=== PATIENT | female | born 1980 | race Caucasian/White ===

== ENCOUNTER 2017-07-28 11:37 | Day surgery (SDC) | payer MEDICARE ==
[~2017-07-28] VITALS: Ht 167.6 cm; Wt 77.3 kg
[~2017-07-28 11:37] MED LIST: AMBIEN5 MG PO; CATAPRES0.1 MG PO; GABAPENTIN100 MG PO; HYDROCODON-ACE1 EAC7 PO; HYDROCODONE-APA1 TAB PO; HYDROXYZINE HCL50 MG PO; LASIX40 MG PO; LOPRESSOR25 MG PO; NORVASC5 MG PO; PROTONIX40 MG PO; REGLAN10 MG PO; SODIUM BICARBO650 MG PO; ULTRAM50 MG PO; ZOCOR10 MG PO; ZOLOFT25 MG PO
[2017-07-28 13:07] LABS: BASOPHILS 0.3 % (0-2); EOSINOPHILS 4.1 % (0-7); HEMATOCRIT 34.2 % (36.0-48.0); HEMOGLOBIN 11.4 g/dL (12-16); IMMATURE GRANULOCYTES 0.3 % (0-5); LYMPHOCYTES 24.1 % (15-50); MCH 30.9 pg (26.0-34.0); MCHC 33.3 g/dL (31.0-37.0); MCV 92.7 fL (80.0-100.0); MEAN PLATELET VOLUME 9.1 fL (7.4-10.4); MONOCYTES 5.3 % (2-11); NEUTROPHILS 65.9 % (40-80); PLATELET COUNT 142 10x3/uL (130-400); RBC 3.69 10x6/uL (4.00-5.40); RDW 13.9 % (11.5-14.5); WBC 3.9 10x3/uL (4.8-10.8)
[2017-07-28 13:19] LABS: ANION GAP 14.3 mmol/L (8-16); CALCIUM 8.3 mg/dL (8.5-10.1); CARBON DIOXIDE 25.1 mmol/L (21.0-32.0); CREATININE - SERUM 3.6 mg/dL (0.6-1.3); POTASSIUM - SERUM 4.4 mmol/L (3.5-5.1)
[2017-07-28 14:29] VITALS: Ht 167.6 cm; Wt 77.3 kg
--- NOTE | 2017-07-28 17:54 | OP ---
PATIENT NAME: BLADIMIR SMITH MEDICAL RECORD: [id number] :78 LOCATION:D.OPS ADMISSION DATE: SURGEON: ROBERTO AKERS DO DATE OF OPERATION: 07/28/2017 PROCEDURE: EGD with biopsies. INDICATIONS FOR PROCEDURE: Nausea, vomiting, and epigastric abdominal pain. SCOPE: [facility] video gastroscope. MEDICATIONS: Propofol 200 mg IV per anesthesia. ESTIMATED BLOOD LOSS: Minimal. COMPLICATIONS: None. FINDINGS: Informed consent was given. The patient was made comfortable with the above medication. After reaching an adequate level of sedation by slow IV push, the patient was placed on her left side. The endoscope was then advanced under direct visualization through the mouth to the second portion of the duodenum. The esophagus was normal in its entirety other than some pseudomembranes in the distal esophagus consistent with Candidal esophagitis. At the GE junction, there was mild evidence of LA class A reflux-induced esophagitis. The endoscope was advanced beyond the GE junction into the stomach and retroflexed to view cardia and fundus, which appeared normal. Throughout the body of stomach, antral, and prepyloric regions, there was some granularity and erythema consistent with gastritis. Random biopsies were taken to submit for histology and to rule out H. pylori. The endoscope was advanced beyond the pylorus into the duodenum, where the entire exam and duodenum appeared normal. The scope was withdrawn from the patient. The patient tolerated the procedure well and there were no complications. IMPRESSION: 1. Candidal esophagitis of mild severity. 2. LA class A reflux-induced esophagitis. 3. Erythema and granularity of the stomach consistent with gastritis. Biopsies pending. PLANS AND RECOMMENDATIONS: 1. Discharge home when recovery parameters are met. 2. Followup biopsy specimen results. 3. Continue current diet. 4. Continue current medications. 5. Add omeprazole 40 mg daily times 30 days to her regimen. 6. Add fluconazole 100 mg daily times 10 days. 7. Gastric emptying scan and right upper quadrant ultrasound regarding epigastric abdominal pain and nausea, both worsened with eating. 8. Follow up in GI clinic as needed. 9. We will follow and make further recommendations once radiologic studies are performed. TRANSINT:[id number] Voice Confirmation ID: [id number] DOCUMENT ID: [id number] OPERATIVE REPORT [id number] BLADIMIR SMITH ROBERTO AKERS DO at 1754 CC: [id number] DICTATION DATE: 07/28/17 1547 MANAGER TRAVEL: 07/28/17 1623 [facility] 07/28/17 [id number] [place] [address]
== END 2017-07-28 16:52 | disposition home or self-care (01) ==
LOC: D.OPS 11:37
PROVIDERS: Anesthesiology
DX: B37.81 Candidal esophagitis (principal); K21.0 Gastro-esophageal reflux disease with esophagitis; K29.70 Gastritis, unspecified, without bleeding; Z01.812 Encounter for preprocedural laboratory examination

== ENCOUNTER → 2017-08-12 07:28 | Outpatient (CLI) | payer MEDICARE ==
[2017-07-28 14:29] VITALS: BMI 27.5
== END | disposition home or self-care (01) ==
LOC: D.US 08-05 08:30 → D.NM 08-05 11:30 → D.US 07:28
DX: R11.2 Nausea with vomiting, unspecified (principal); R10.13 Epigastric pain

== ENCOUNTER 2019-04-25 07:23 | Day surgery (SDC) | payer MEDICARE ==
[~2019-04-25] VITALS: Ht 167.6 cm; Wt 73.9 kg
[2019-04-25 07:52] LABS: ANION GAP 10.8 mmol/L (8-16); CARBON DIOXIDE 32.9 mmol/L (21.0-32.0); CREATININE - SERUM 5.3 mg/dL (0.6-1.3); POTASSIUM - SERUM 3.7 mmol/L (3.5-5.1)
[2019-04-25 07:57] LABS: BASOPHILS 0.6 % (0-2); EOSINOPHILS 10.4 % (0-7); HEMATOCRIT 32.1 % (36.0-48.0); HEMOGLOBIN 11.5 g/dL (12-16); IMMATURE GRANULOCYTES 0.2 % (0-5); LYMPHOCYTES 25.3 % (15-50); MCH 30.7 pg (26.0-34.0); MCHC 35.8 g/dL (31.0-37.0); MCV 85.6 fL (80.0-100.0); MEAN PLATELET VOLUME 9.4 fL (7.4-10.4); MONOCYTES 7.6 % (2-11); NEUTROPHILS 55.9 % (40-80); PLATELET COUNT 131 10x3/uL (130-400); RBC 3.75 10x6/uL (4.00-5.40); RDW 13.3 % (11.5-14.5); WBC 4.6 10x3/uL (4.8-10.8)
[2019-04-25 07:59] LABS: INR 1.02 (0.85-1.17); PROTIME 12.9 SECONDS (11.6-15.0)
[2019-04-25] MEDS ORDERED: RANITIDINE HCL150 M1 PO (09:18)
[2019-04-25] MEDS ORDERED: ATIVAN0.5 MG PO (09:18)
[2019-04-25] MEDS ORDERED: NOVOLOG100 UNIT/1 SC (09:19)
[2019-04-25 09:38] VITALS: Ht 167.6 cm; Wt 73.9 kg
--- NOTE | 2019-04-25 19:46 | NUR ---
183 - PT'S BROUGHT TO BEDSIDE WITH PT'S INSULIN PUMP. PT STATES THAT SHE USES NOVOLOG IN THE PUMP, SELF-ADMINISTERED I UNIT AT 183, PER .
--- NOTE | 2019-04-25 19:47 | NUR ---
1847 - PT'S METER SHOWS READING OF 315. 1 UNIT ADMINISTERED BY AT 1847
--- NOTE | 2019-04-25 19:48 | NUR ---
1902 - HOSPITAL GLUCOMETER READS 380 - PT SELF-ADMINISTERED 2 UNITS NOVOLOG PER .
--- NOTE | 2019-04-25 19:49 | NUR ---
1914 - PT RETURNED TO OUTPATIENT ROOM - WILL RETURN TO MONITOR GLUCOSE IN 40 MINUTES.
--- NOTE | 2019-04-25 20:21 | NUR ---
1999 PT ATE WELL BS 334 FROM 380 PT REGULATING BS WITH HER INSULIN PUMP AND STATED SHE WANTED TO LOWER IT GRADUALLY BECAUSE IF SHE GETS TO 200 A SUGGESTED GOAL SHE WOULD FEEL SICK. INSTRUCTIONS GIVEN AND IV REMOVED. ASSITED WITH GETTING DRESSED
--- NOTE | 2019-05-02 10:48 | OP ---
PATIENT NAME: BLADIMIR WALDEN MEDICAL RECORD: [id number] :78 LOCATION:CLEMENT ADMISSION DATE: SURGEON: NENA BEEBE MD DATE OF OPERATION: 04/25/2019 REFERRED BY: Dr. Ledbetter and Dr. Elise. PREOPERATIVE NOTE: Ms. Walden is a 39-year-old insulin-dependent diabetic with end-stage renal disease, on dialysis. She has been dialyzing for about 2 years with a left brachial artery to translocated basilic vein AV fistula. She recently had problems with occlusion and was found to have developed a severe stenosis in the swing segment of her fistula, which was successfully dilated by Dr. Elise. She has been referred back to me for additional treatment. 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 Elise and I agree that by banding her fistula and reducing the flow volume within it, we may sufficiently reduce the sear forces and reduce at least the frequency of recurrent stenosis. I also planned to perform a fistulogram and repeat balloon dilatation of the swing segment stenosis with also including use of a Lutonix drug-coated balloon. The procedure also necessitates performance of a selective brachial artery arteriogram. DESCRIPTION OF PROCEDURE: Under regional nerve block and sedation or general anesthesia, the patient was prepped and draped in sterile manner. The fistula in the left arm was accessed with micropuncture technique and an 8-Mozambican introducer sheath inserted, directed proximally. A fistulogram contrast injection was performed, which revealed evidence of a recurring approximately 50% to 60% diameter reducing stenosis in the swing segment and no other abnormalities of the body and runoff from the fistula or in the central veins. Repeat injection was done with proximal occlusion of the fistula, which demonstrated a narrower JA segment, but still a very large caliber with no identified lesions in the susan-anastomotic segment of brachial artery, which was visualized. I then used a 12 mm x 40 mm [place] balloon to dilate the swing segment and followed up on that with a 12 mm diameter x 40 mm Lutonix drug-coated balloon. This balloon was inflated fully and held fully inflated for 2 minutes before was deflated. Contrast injection subsequently revealed a dramatic improvement in that area. The balloons and guidewire were removed. A repeated micropuncture access was done proximally directed distally and a 6-Mozambican introducer was inserted. A 0.035 Glidewire and glide catheter was then advanced distally and with considerable manipulation crossed through the JA segment and the arterial anastomosis into the proximal and distal brachial arteries. Contrast injection was performed, which revealed no problems with the brachial artery above or below the anastomosis for essentially the full length of the brachial artery and demonstrated rapid flow in the fistula. I placed a 4 mm diameter x 40 mm angioplasty balloon over the wire in the JA segment above the or proximal to the arterial anastomosis and then inflated the balloon. I made an incision alongside the JA segment and exposed the fistula and encircled it with a 0 Prolene ligature. This ligature was tied down snugly over the fully inflated 4 mm diameter endoluminal balloon, which was subsequently deflated and removed. The glide catheter was again inserted over the wire and a repeat contrast injection demonstrated a satisfactory result from the banding and increased flow into the forearm and hand via particularly the ulnar artery. The hardware was subsequently removed and the sheaths were removed and hemostasis obtained at those sites with a [id number] 4-0 Prolene and dressings of Ultrafoam, Tegaderm, and Cavilon skin prep. The incision was approximated with a few interrupted inverted 3-0 Vicryl and then a running intracuticular 4-0 OPERATIVE REPORT [id number] BLADIMIR WALDEN. It was sealed with Dermabond glue and dressed with Maxorb Ag, Tegaderm, and Cavilon skin prep. The patient was then awakened and in stable condition returned to the recovery room having tolerated the operation quite well. There was a very noticeable decreased pressure and pulsation within the fistula, but there was a good augmentation and an excellent thrill palpable over the area of banding. Blood loss during the operation was about 5 cc and unreplaced. Sponges, instruments, and needles were accounted for. No drain was used and no surgical specimen submitted for histopathology. The patient is to have dialysis tomorrow and continue her usual dialysis schedule. Continue all of her same medications, diabetic renal diet, etc. An appointment will be made for her to follow up with me in my office next week. She is given a prescription for a small number of [place] 5/325. She can take one p.o. q.4-6 hours p.r.n. pain, no refills of course. TRANSINT:[id number] Voice Confirmation ID: [id number] DOCUMENT ID: [id number] NENA BEEBE MD at 1048 CC: CASSANDRA LEDBETTER MD and CORY ELISE MD [id number] DICTATION DATE: 04/26/19 1608 DIESEL TECHNICIAN MECHANIC: 04/26/19 2243 [facility] 04/25/19 [id number] [address] [id number]
== END 2019-04-25 20:24 | disposition home or self-care (01) ==
LOC: D.OPS 07:23
PROVIDERS: ATTEND Internal Medicine
DX: E11.22 Type 2 diabetes mellitus with diabetic chronic kidney disease (principal); N18.6 End stage renal disease; Z99.2 Dependence on renal dialysis; T82.858A Stenosis of other vascular prosthetic devices, implants and grafts, initial encounter; Z01.812 Encounter for preprocedural laboratory examination

== ENCOUNTER 2019-05-05 14:36 | Inpatient (IN) | payer MEDICARE ==
[~2019-05-05] VITALS: Ht 167.6 cm; Wt 75.0 kg
[2019-05-05] VITALS (11 sets, daily range): BP systolic 114–178; BP diastolic 58–95; BMI 28.3
[~2019-05-05 14:36] MED LIST changes: +ATIVAN0.5 MG PO; +NOVOLOG100 UNIT/1 SC; +RANITIDINE HCL150 M1 PO
--- NOTE | 2019-05-05 14:39 | NUR ---
RT AT BS
--- NOTE | 2019-05-05 14:39 | NUR ---
VENT SETTINGS: AC 14 FIO2 45% PEEP 5 TV 450
--- NOTE | 2019-05-05 14:55 | NUR ---
DR MATA AT BS
[2019-05-05 15:14] LABS: BASOPHILS 0.2 % (0-2); HEMATOCRIT 28.6 % (36.0-48.0); HEMOGLOBIN 10.2 g/dL (12-16); IMMATURE GRANULOCYTES 0.2 % (0-5); LYMPHOCYTES 10.3 % (15-50); MCH 30.1 pg (26.0-34.0); MCHC 35.7 g/dL (31.0-37.0); MCV 84.4 fL (80.0-100.0); MEAN PLATELET VOLUME 10.1 fL (7.4-10.4); MONOCYTES 5.6 % (2-11); NEUTROPHILS 79.7 % (40-80); PLATELET COUNT 145 10x3/uL (130-400); RBC 3.39 10x6/uL (4.00-5.40); RDW 12.9 % (11.5-14.5); WBC 5.6 10x3/uL (4.8-10.8)
--- NOTE | 2019-05-05 15:15 | NUR ---
DR HOLLY REPORTS ET TUBE NEEDS TO BE PULLED BACK 4 CM. RT PAGED/NOTIFIED
--- NOTE | 2019-05-05 15:15 | NUR ---
DR OWUSU AT BS
--- NOTE | 2019-05-05 15:19 | NUR ---
RT AT BS ET TUBED PULLED BACK TO 22 AT THE LIP (3 CM) REPEAT PCXR ORDERED
[2019-05-05 15:27] LABS: APTT 26.3 SECONDS (22.8-39.4); INR 1.02 (0.85-1.17); PROTIME 12.9 SECONDS (11.6-15.0)
--- NOTE | 2019-05-05 15:27 | NUR ---
FSBS= 363 MG/DL
--- NOTE | 2019-05-05 15:29 | NUR ---
RT AT BS FRO ABG'S NO RESPONSE FROM PT.
--- NOTE | 2019-05-05 15:31 | NUR ---
REPEAT PCXR COMPELTED
--- NOTE | 2019-05-05 15:45 | NUR ---
TO CT VIA STRETCHER WITH CM, RN, RT AND ROCK CLIMBING INSTRUCTOR. VSS
[2019-05-05 15:59] LABS: ALBUMIN 3.3 g/dL (3.4-5.0); ALKALINE PHOSPHATASE 72 U/L (46-116); ALT (SGPT) 15 U/L (10-68); CALC OSMOLALITY 292 mosm/kg (275-300); CALCIUM 7.8 mg/dL (8.5-10.1); CARBON DIOXIDE 30.9 mmol/L (21.0-32.0); CHLORIDE - SERUM 99 mmol/L (98-107); CREATININE - SERUM 3.4 mg/dL (0.6-1.3); POTASSIUM - SERUM 3.3 mmol/L (3.5-5.1); PROTEIN - SERUM 6.5 g/dL (6.4-8.2); SODIUM 138 mmol/L (136-145); UREA NITROGEN 15 mg/dL (7-18); eGFR NON AFRICAN AMERICAN 16 mL/min (90-120)
[2019-05-05 16:00] LABS: GLUCOSE 383 mg/dL (74-106)
--- NOTE | 2019-05-05 16:02 | NUR ---
RTN TO T3. CONDITION STABLE/UNCHANGED
--- NOTE | 2019-05-05 16:05 | NUR ---
SPOKE WITH DR HOLLY RE: PTS SEDATION LEVEL/UNABLE TO AROUSE TO PAINFUL STIMULI AND QUESTIONED DECREASING PROPOFOL. DR HOLLY REPORTS LEAVE IS FOR NOW
[2019-05-05 16:15] LABS: CKMB 1.5 U/L (0.0-3.6); CREATINE KINASE 60 UL (21-215); MAGNESIUM - SERUM 1.7 mg/dL (1.8-2.4); THYROID STIMULATING HORMONE 2.79 uIU/mL (0.36-3.74)
--- NOTE | 2019-05-05 16:22 | NUR ---
URINE SPEC ASPIRATED FROM FC, LABELED AT BS AND SENT TO LAB
--- NOTE | 2019-05-05 16:31 | NUR ---
FAMILY ARRIVED AND AT BS
--- NOTE | 2019-05-05 16:32 | NUR ---
RIGHT ARM FISTULA WITH DRSG IN PLACE D/I. REMOVED NO BLEEDING NOTED AT SITE.
[2019-05-05 16:41] LABS: UDS - AMPHET NEGATIVE QUAL (NEGATIVE); UDS - BARB NEGATIVE QUAL (NEGATIVE); UDS - BENZO NEGATIVE QUAL (NEGATIVE); UDS - COCAINE NEGATIVE QUAL (NEGATIVE); UDS - OPIATE NEGATIVE QUAL (NEGATIVE); UDS - PCP NEGATIVE QUAL (NEGATIVE); UDS - THC NEGATIVE QUAL (NEGATIVE)
[2019-05-05 16:58] LABS: APPEARANCE CLEAR (CLEAR); COLOR YELLOW (YELLOW)
[2019-05-05 16:59] LABS: BILIRUBIN NEGATIVE (NEGATIVE); GLUCOSE 1000 mg/dL (NEGATIVE); KETONE NEGATIVE (NEGATIVE); NITRITE NEGATIVE (NEGATIVE); PROTEIN 1+ mg/dL (NEGATIVE); SPECIFIC GRAVITY 1.015 (1.005-1.020); UROBILINOGEN NORMAL (NORMAL)
[2019-05-05 17:03] LABS: BACTERIA MODERATE /hpf (NONE SEEN); EPITHELIAL CELLS 0-5 /hpf (0-5); RED CELLS - URINE 0-5 /hpf (0-5)
--- NOTE | 2019-05-05 17:17 | NUR ---
CONTINUES TO REST IN BED WITH NO MOVEMENT. FAMILY AT BS AND NO RESPONSE FROM FAMILY COMTACT
--- NOTE | 2019-05-05 19:00 | NUR ---
ORDER FOR SOFT WRIST RESTRAINTS BILATERALLY FOR NON-VIOLENT PATIENT RECEIVED BY DR. EUBANKS. SEE RESTRAINT PAPERWORK.
--- NOTE | 2019-05-05 19:01 | NUR ---
ASSUMED CARE OF PATIENT, RESP AT BEDSIDE DOING ABG'S. FAMILY AT BEDSIDE, VITAL SIGNS STABLE. NG TUBE DRAINING TO INTERMITTENT SUCTION. CALL DRAINING.
--- NOTE | 2019-05-05 19:03 | NUR ---
MADISON SCALE A 1,
--- NOTE | 2019-05-05 19:36 | NUR ---
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
--- NOTE | 2019-05-05 20:55 | NUR ---
DR EUBANKS CANCELLED MRI (CAN NOT COME OFF SEDATION MEDS AND TOO UNSTABLE) AND CANCELLED NM V/Q SCAN (NOT NEEDED AT THIS TIME AND TOO UNSTABLE)
--- NOTE | 2019-05-05 21:33 | NUR ---
UNABLE TO SCAN LOVENOX 80MG, MOUSE NOT WORKING, COULDN'T TAB.
[2019-05-05] MEDS ORDERED: BENADRYL25 MG PO (21:46)
[2019-05-06] VITALS (24 sets, daily range): BP systolic 90–174; BP diastolic 54–95; Ht 167.6 cm; Wt 75.0 kg
--- NOTE | 2019-05-06 01:28 | NUR ---
PATIENT RESTING QUIETLY. PATIENT SEDATED. BED LOWERED/LOCKED. CALL LIGHT WITHIN REACH. VSS. IV INFUSING WITHOUT SIGNS OF INFILTRATION. CALL SECURED BELOW BLADDER, APPEARS TO BE DRAINING PROPERLY. TUBING FREE OF LOOPS. CALL LIGHT WITHIN REACH. WILL CONTINUE TO MONITOR.
[2019-05-06 04:17] LABS: BASOPHILS 0.6 % (0-2); EOSINOPHILS 11.2 % (0-7); HEMATOCRIT 27.4 % (36.0-48.0); HEMOGLOBIN 9.2 g/dL (12-16); IMMATURE GRANULOCYTES 0.3 % (0-5); LYMPHOCYTES 29.4 % (15-50); MCH 28.7 pg (26.0-34.0); MCHC 33.6 g/dL (31.0-37.0); MCV 85.4 fL (80.0-100.0); MEAN PLATELET VOLUME 9.4 fL (7.4-10.4); MONOCYTES 7.3 % (2-11); NEUTROPHILS 51.2 % (40-80); PLATELET COUNT 125 10x3/uL (130-400); RBC 3.21 10x6/uL (4.00-5.40); RDW 13.1 % (11.5-14.5)
[2019-05-06 04:19] LABS: WBC 3.3 10x3/uL (4.8-10.8)
[2019-05-06 04:22] LABS: INR 1.08 (0.85-1.17); PROTIME 13.5 SECONDS (11.6-15.0)
[2019-05-06 04:24] LABS: APTT 34.4 SECONDS (22.8-39.4)
[2019-05-06 04:42] LABS: ALBUMIN 3.3 g/dL (3.4-5.0); ANION GAP 13.9 mmol/L (8-16); BILIRUBIN - TOTAL 0.27 mg/dL (0.2-1.3); CALCIUM 8.1 mg/dL (8.5-10.1); CARBON DIOXIDE 28.6 mmol/L (21.0-32.0); CREATININE - SERUM 4.4 mg/dL (0.6-1.3); MAGNESIUM - SERUM 1.8 mg/dL (1.8-2.4); PHOSPHOROUS 3.6 mg/dL (2.5-4.9); POTASSIUM - SERUM 3.5 mmol/L (3.5-5.1); PROTEIN - SERUM 6.4 g/dL (6.4-8.2); THYROID STIMULATING HORMONE 3.88 uIU/mL (0.36-3.74); TROPONIN-I 0.025 ng/mL (0.000-0.060)
--- NOTE | 2019-05-06 06:50 | NUR ---
PATIENT RESTING QUIETLY. BED LOWERED/LOCKED, CALL LIGHT WITHIN REACH. VSS. CALL SECURED BELOW BLADDER AND TUBING FREE OF LOOPS. IV INFUSING WITHOUT SIGNS OF INFILTRATION. WILL CONTINUE TO MONITOR.
--- NOTE | 2019-05-06 07:30 | NUR ---
EYES OPEN TO STIMULATION. NOT OBEYING COMMANDS. RIGHT JUGLAR IV SALINE LOCKED. RIGHT FOREARM IV WITHOUT REDNESS OR SWELLING INFUSING DIPIRIVAN AT 70 MCG/KG/MIN. ETT SECURE TO VENT. BILATERAL LUNG SOUNDS EQUAL. GOOD COUGH WHEN REPOSTIONED. NG CONNECTED TO LOW INTERMITTENT SUCTION GREEN DRAINAGE. FISTULA LEFT UPPER ARM WITH GOOD THRILL. CALL CATH PATENT. HEAD OF BED ELEVATED 30 DEGREES.
--- NOTE | 2019-05-06 08:45 | NUR ---
FAMILY HERE UPDATE GIVEN
--- NOTE | 2019-05-06 10:00 | NUR ---
RESTING COMFORTALY. NO DISTRESS. CLEAR SECRETIONS FROM MOUTH. FAMILY AT BEDSIDE. QUESTIONS ANSWERED UPDATE GIVEN
--- NOTE | 2019-05-06 11:15 | NUR ---
COMPLETE BED BATH GIVEN WITH HIBCLENS, LINE CHANGE PATIENT TOLERATED WELL NO SKIN BREAKDOWN NOTED. FEW BRUISIES ON LEGS. DR. TEJADA HERE
--- NOTE | 2019-05-06 13:00 | NUR ---
BRONCH DONE PER DR. TEJADA PATIENT TOLERATED WELL. NO DISTRESS. UPDATE GIVEN TO FAMILY
--- NOTE | 2019-05-06 14:25 | NUR ---
WAKES UP OBEYING COMMANDS, MOVES FEET AND TOES ON REQUEST. SQUEEZES HANDS ON REQUEST. OPENING EYES ON REQUEST
--- NOTE | 2019-05-06 16:00 | NUR ---
FAMILY HERE PATIENT OBEYING COMMANDS NODES HEAD TO YES AND NO QUESTIONS. BUT RESTING COMFORTABLY.
--- NOTE | 2019-05-06 17:30 | NUR ---
PATIENT WAKING UP LEANING FORWARD, GAGGING ON ETT. DIPRIVAN TURNED UP TO 65 MCG/KG/MIN.
--- NOTE | 2019-05-06 18:59 | NUR ---
PATIENT RESTING COMFORTABLY. NO DISTRESS
--- NOTE | 2019-05-06 19:45 | NUR ---
PATIENT IN NO DISTRESS. VSS. IV INFUSING WITHOUT SIGNS OF INFILTRATION. BED LOWERED/LOCKED. CALL LIGHT WITHIN REACH. CALL SECURED BELOW BLADDER, PATENT AND TUBING FREE OF LOOPS. WILL CONTINUE TO MONITOR.
[2019-05-07] VITALS (24 sets, daily range): BP systolic 111–188; BP diastolic 61–112
--- NOTE | 2019-05-07 02:30 | NUR ---
CHG BATH GIVEN, COMPLETE LINEN CHANGE AND GOWN CHANGE. PATIENT REPOSITIONED. CALL CATH CARE PERFORMED. PATIENT TOLERATED WELL. VSS. BED LOWERED/LOCKED. CALL LIGHT WITHIN REACH. IV INFUSING WITHOUT SIGNS OF INFILTRATION. SKIN WARM/DRY. CALL SECURED BELOW BLADDER AND TUBING FREE OF LOOPS. WILL CONTINUE TO MONITOR.
[2019-05-07 04:42] LABS: BASOPHILS 1.3 % (0-2); EOSINOPHILS 10.6 % (0-7); HEMATOCRIT 29.4 % (36.0-48.0); HEMOGLOBIN 10.4 g/dL (12-16); IMMATURE GRANULOCYTES 0.3 % (0-5); LYMPHOCYTES 31.7 % (15-50); MCH 29.9 pg (26.0-34.0); MCHC 35.4 g/dL (31.0-37.0); MCV 84.5 fL (80.0-100.0); MEAN PLATELET VOLUME 9.1 fL (7.4-10.4); MONOCYTES 8.3 % (2-11); NEUTROPHILS 47.8 % (40-80); PLATELET COUNT 135 10x3/uL (130-400); RBC 3.48 10x6/uL (4.00-5.40); RDW 13.3 % (11.5-14.5); WBC 3.1 10x3/uL (4.8-10.8)
[2019-05-07 05:02] LABS: CALCIUM 8.6 mg/dL (8.5-10.1); CARBON DIOXIDE 25.9 mmol/L (21.0-32.0); CHLORIDE - SERUM 97 mmol/L (98-107); GLUCOSE 150 mg/dL (74-106); POTASSIUM - SERUM 3.4 mmol/L (3.5-5.1); SODIUM 135 mmol/L (136-145); TROPONIN-I < 0.017 ng/mL (0.000-0.060); eGFR NON AFRICAN AMERICAN 7 mL/min (90-120)
[2019-05-07 05:10] LABS: CALC OSMOLALITY 279 mosm/kg (275-300); CREATININE - SERUM 6.6 mg/dL (0.6-1.3); PHOSPHOROUS 5.9 mg/dL (2.5-4.9); UREA NITROGEN 32 mg/dL (7-18)
--- NOTE | 2019-05-07 05:25 | NUR ---
NO DISTRESS NOTED. VSS. NGT TO LOW INTERMITTENT SUCTION, DRAINING ADEQUATELY. BED LOWERED/LOCKED. CALL LIGHT IN REACH. CALL SECURED BELOW BLADDER, TUBING FREE OF LOOPS. SCD'S IN PLACE. SKIN WARM, DRY. WILL CONTINUE TO MONITOR.
--- NOTE | 2019-05-07 07:08 | NUR ---
DIPRIVAN TURNED TO ALLOW PATIENT TO WAKE UP FOR VENT WEANING. ETT SECURE TO VENT. IV RIGHT FOREARM INFUSING WITH DIPRIVAN AT 65 MCG/GK/MIN. NO REDNESS OR DRAINAGE. NG TO LOW INTERMITTENT SUCTION DRAINAGE GREEN LIQUID. CALL CATH PATENT. MONITOR SR. HEAD OF BED ELEVATED 30 DEGREES
--- NOTE | 2019-05-07 09:03 | NUR ---
TRIED DIPRIVAN AT 50 MCG/KG/HR. PATIENT RESTLESS, KICK LEGS BACK AND FORTH SITTING UP IN BED. DIPRIVAN INCREASED BACK TO 65 MCG/KG/MIN
--- NOTE | 2019-05-07 09:11 | NUR ---
FAMILY HERE. UPDATE GIVEN. DIPRIVAN DECREASED TO 50 MCG/KG/MIN. FAMILY UNDERSTAND NEED TO KEEP HER CALM AND COOPERATIVE TO GET ETT OUT.
--- NOTE | 2019-05-07 10:45 | NUR ---
BLOOD PRESSURE ELEVATED. APRESOLINE 10 IV GIVEN WITH GOOD RESPONSE
--- NOTE | 2019-05-07 11:00 | NUR ---
TRIED TO TURN OFF PATIENT DIPIRVAN, PATIENT EXTREMELY RESTLESS, KICKING LEGS BACK AND FORTH, UP AND DOWN IN BED. DIPRIVAN TURNED BACK ON AT 65 MCG/KG/MIN PATIENT LEFT ON CPAP, AND RESP CONTINUED DEEP AND REGULAR WITH DIPRIVAN. WHEN RESTLESS DIFFICULT TO GET PATIENT TO OBEY COMMANDS, OBEYS COMMANDS BETTER WHEN DIPRIVAN TURNED ON.
--- NOTE | 2019-05-07 11:45 | NUR ---
DIPRIVAN TURNED OFF. EXTUBATED. NG TUBE PULLED. TOLERATED FAIR.OXYGEN APPLIED 2 LITERS NC. FAIR COUGH. FAMILY AT BEDSIDE.
--- NOTE | 2019-05-07 12:00 | NUR ---
RESTLESS MOVING LEGS BACK AND FORTH, MOANING, STATES SHE IS HURTING ALL OVER. DR. OWUSU BEEPED. DR. TEJADA HERE STATES DR. OWUSU WILL HAVE ORDER MEDS FOR HER
--- NOTE | 2019-05-07 12:15 | NUR ---
TALKED WITH DR. OWUSU REVIEWED ALLERGIES. ATIVAN 0.5MG IV Q 6 HOURS PRN ORDERED. EXTRA STRENGHT TYLENOL Q [address] TEJADA WANTS PATIENT TO REMAIN NPO UNTIL SPEECH THERAPY
--- NOTE | 2019-05-07 12:48 | NUR ---
RESTING MORE COMFORTABLY, ANSWERING QUESTINS. STATES CLEARLY SHE DOES WANT ANY TYLENOL FOR PAIN. FAMILY AT BEDSIDE
--- NOTE | 2019-05-07 13:09 | NUR ---
DR. OWUSU CALLED PATIENT CRYING, HURTING ALL OVER.
--- NOTE | 2019-05-07 13:30 | NUR ---
NOT CRYING, STATES PAIN IS A 8, BUT PATIENT CALM AND MORE COOPERATIVE. FAMILY AT BEDSIDE. NO RESP DISTRESS.
--- NOTE | 2019-05-07 14:15 | NUR ---
SPEECH THERAPY HERE. PATIENT DOES NOT LIKE APPLE SAUCE. NO PROBLEMS SWALLOWING PUDDING AND SIPPING ON WATER. NO COUGHING NOTED. STATES IT IS PAINFUL TO SWALLOW. PATIENT BECAME NAUSEA WITH DRY HEAVES. FAMILY STATE THIS IS NOT UNUSUAL FOR HER. DR. OWUSU NOTIFIED OF NAUSEA AND CLEARED FOR PO MEDS PER SPEECH THERAPY ORDERS RECEIVED FOR ZOFRAN AND OK TO RESTART NEUROTIN.
--- NOTE | 2019-05-07 15:34 | NUR ---
PATIENT TAKING ICE CHIPS. PO MEDS PUT IN VANILLA PUDDING.. NO DIFFICULTY SWALLOWING. MORE COOPERATIVE AND CLEAR HEADED. ABLE TO EXPRESS NEEDS. NOT RESTLESS ANYMORE . HEAD OF BED ELEVATED 90 DEGREES. FAMILY AT BEDSIDE.
--- NOTE | 2019-05-07 16:49 | NUR ---
PATIENT COMPLIANTING OF SEVERE PAIN RIGHT LOWER ARM. HAND AND ARM WARM AND DRY NO REDNESS NOTED. STATES IT IS A THROBBING CONTANT PAIN. ABLE TO MOVE FINGERS HAND PUBLIC [employer] STAFF NURSE TIGHT. FISTULA LEFT UPPER ARM FAINT THRILL AND BRUIT NOTED. DR. OWUSU. NOTIFIED. ORDERS RECEIVED FOR LEVONOX 60 MG SQ DAILY. CONTINUE CURRENT PAIN MEDS ORDERED.
--- NOTE | 2019-05-07 17:15 | NUR ---
PAIN MEDS GIVEN LEFT LOWER PAIN AND GENERALIZED PAIN ALL OVER. PAIN MEDS EFFECTIVE
--- NOTE | 2019-05-07 17:29 | NUR ---
FEEDING PATIENT SOME ICE CREAM TOLERATING WELL.
--- NOTE | 2019-05-07 18:20 | NUR ---
PATIENT REQUESTING SOMETHING FOR LEFT LOWER ARM STILL HURTING. ATIVAN 0.5 MG IV GIVEN
--- NOTE | 2019-05-07 19:55 | NUR ---
DR. OWUSU AT BEDSIDE TO SEE PATIENT. NEW ORDER FOR PAIN MEDICATION GIVEN.
--- NOTE | 2019-05-07 23:05 | NUR ---
PATIENT WOKE UP C/O EXTREME PAIN TO LT ARM. PATIENT HAS SLIGHT SWELLING TO FOREARM. RADIAL PULSE INTACT. ARM ELEVATED ON PILLOW FOR COMFORT AND PATIENT STATES SHE WOULD TRY AND GET SOME REST. VSS. BED LOWERED/LOCKED. CALL LIGHT WITHIN REACH. CALL SECURED BELOW BLADDER, PATENT AND TUBING FREE OF LOOPS. IV INFUSING WITHOUT SIGNS OF INFILTRATION. WILL CONTINUE TO MONITOR.
[2019-05-08] VITALS (23 sets, daily range): BP systolic 128–192; BP diastolic 64–102
--- NOTE | 2019-05-08 00:14 | NUR ---
PATIENT PRODUCER ASSISTANT LIGHT, STILL C/O SEVERE PAIN TO LT FOREARM, DESCRIBES IT SHARP AND SHOOTING THAT EXTENDS UP HER LT ARM. RADIAL PULSE CHECKED AGAIN, PRESENT AND STRONG. SLIGHT WARMNESS TO LT ARM, POSSIBLY SLIGHT SWELLING. ARM REPOSITIONED ON BLANKET AND PRN ORDER FOR PO TYLENOL WAS CRUSHED AND GIVEN WITH VANILLA PUDDING FOR PATIENT TO SWALLOW. CALL LIGHT WITHIN REACH. WILL CONTINUE TO MONITOR.
--- NOTE | 2019-05-08 00:17 | NUR ---
RESPIRATORY TOOK PATIENT OFF NASAL CANNULA. PATIENT NOW ON ROOM AIR
[2019-05-08 04:38] LABS: BASOPHILS 0.3 % (0-2); EOSINOPHILS 8.5 % (0-7); HEMATOCRIT 28.2 % (36.0-48.0); HEMOGLOBIN 9.8 g/dL (12-16); LYMPHOCYTES 20.7 % (15-50); MCH 29.8 pg (26.0-34.0); MCHC 34.8 g/dL (31.0-37.0); MCV 85.7 fL (80.0-100.0); MEAN PLATELET VOLUME 9.3 fL (7.4-10.4); MONOCYTES 6.6 % (2-11); NEUTROPHILS 63.9 % (40-80); PLATELET COUNT 123 10x3/uL (130-400); RBC 3.29 10x6/uL (4.00-5.40); RDW 13.2 % (11.5-14.5); WBC 3.8 10x3/uL (4.8-10.8)
--- NOTE | 2019-05-08 05:05 | NUR ---
CHG BATH GIVEN. COMPLETE LINEN CHANGE AND GOWN CHANGE. PATIENT REPOSITIONED. LEGS ELEVATED ON PILLOW, SCDS INTACT. SKIN WARM AND DRY. IV TO RT JUGULAR REMOVED, NO BLEEDING NOTED AND DRESSING APPLIED. IV TO RT FOREARM INFUSING WITHOUT SIGNS OF INFILTRATION, DRESSING CLEAN AND INTACT. VSS. CALL SECURED BELOW BLADDER AND TUBING FREE OF LOOPS. BED LOWERED/LOCKED AND CALL LIGHT WITHIN REACH. PATIENT DENIES FURTHER NEEDS OR CONCERNS AT THIS TIME. WILL CONTINUE TO MONITOR.
[2019-05-08 05:17] LABS: ANION GAP 18.4 mmol/L (8-16); CALCIUM 8.1 mg/dL (8.5-10.1); CARBON DIOXIDE 24.1 mmol/L (21.0-32.0); CREATININE - SERUM 8.1 mg/dL (0.6-1.3); POTASSIUM - SERUM 3.5 mmol/L (3.5-5.1); VANCOMYCIN - RANDOM 28.4 ug/mL (10.0-20.0)
[2019-05-08 05:21] LABS: PHOSPHOROUS 7.5 mg/dL (2.5-4.9)
--- NOTE | 2019-05-08 07:00 | NUR ---
REPORT RECEIVED. ASSESSMENT COMPLETE PER FLOW SHEET REFER FOR FINDINGS. VSS. PT AWAKE ALERT ORIENTED X4 STATED PAIN 9/10 RADIATING FROM L ARM. ICE APPLIED. DR CONKLIN AT BEDSIDE NEW ORDERS RECEIVED. WILL ADM. DENIES NEEDS WILL CONTINUE TO MONITOR
--- NOTE | 2019-05-08 08:50 | NUR ---
PT GIVEN BREAKFAST TRAY ATE 35%
--- NOTE | 2019-05-08 09:20 | NUR ---
Nutrition follow-up: Pts diet advanced to renal soft today s/p extubation 05/07 Pt has been eating some full liquids; has had some nausea, vomiting Labs reviewed wt: 186# Will provide food choices and honor food preferences within diet restrictions. RDN following.
--- NOTE | 2019-05-08 09:20 | NUR ---
FAMILY AT BEDSIDE QUESTIONS ANSWERED DENIES NEEDS WILL CONTINUE TO MONITOR
--- NOTE | 2019-05-08 10:20 | NUR ---
RADIOLOGY AT BEDSIDE XR OBTAINED. WILL REASSESS.
--- NOTE | 2019-05-08 11:26 | NUR ---
REASSESSMENT COMPLETE PER FLOW SHEET. VSS. NO NEW CHANGES PT RESTING COMFORTABLY WILL CONTINUE TO MONITOR
--- NOTE | 2019-05-08 15:26 | NUR ---
REASSESSMENT COMPLETE PER FLOW SHEET. VSS. NO NEW CHANGES PT WILL CONTINUE TO MONITOR
--- NOTE | 2019-05-08 15:59 | MORECARE ---
CASE MANAGEMENT DISCHARGE SUMMARY PATIENT: BLADIMIR SMITH UNIT: [id number] ADM DATE: 05/05/19 AGE: 39 : 78 SEX: F ROOM/BED: D.2305 AUTHOR: SYLVIE AYALA PHYSICIAN: REFERRING PHYSICIAN: JONAH OWUSU MD DATE OF SERVICE: 05/08/19 Discharge Plan Patient Name: BLADIMIR SMITH Facility: [facility]:[place] : 1980 Planned Disposition: Home or Self Care Anticipated Discharge Date: Discharge Date: Expected LOS: Initial Reviewer: [email or web address] Initial Review Date: 05/08/2019 Generated: 05/08/19 4:59 pm Patient Name: BLADIMIR SMITH Page [id number] at 1553 All edits/amendments must be made on the electronic document DICTATION DATE: 05/08/19 1559 ELECTRIC MOTOR REPAIRMAN: BETTY 05/08/19 1559 RPT#: [id number] DC DATE: STATUS: ADM IN [facility] [address] [place] [address] END OF REPORT
--- NOTE | 2019-05-08 16:08 | MORECARE ---
CASE MANAGEMENT DISCHARGE SUMMARY PATIENT: BLADIMIR WALDEN UNIT: [id number] ADM DATE: 05/05/19 AGE: 39 : [birth year] SEX: F ROOM/BED: D.2305 AUTHOR: SYLVIE AYALA PHYSICIAN: REFERRING PHYSICIAN: JONAH RAMÍREZ MD DATE OF SERVICE: 05/08/19 Discharge Plan Patient Name: BLADIMIR WALDEN Facility: [facility]:[place] : 1980 Planned Disposition: Home or Self Care Anticipated Discharge Date: Discharge Date: Expected LOS: Initial Reviewer: [email or web address] Initial Review Date: 05/08/2019 Generated: 05/08/19 5:07 pm Comments DCP- Discharge Planning Updated by [email or web address]: Nisreen Johnson on 05/08/19 3:[address] Patient Name: BLADIMIR WALDEN Admission Status: ER Accout number: [id number] Admission Date: 05-05-2019 : 1980 Admission Diagnosis:RESPIRATORY FAILURE, UNSP, UNSP W HYPOXIA OR HYPERCAPNI Attending: Jonah Ramírez Current LOS: 3 Anticipated DC Date: Planned Disposition: Home or Self Care Primary Insurance: MEDICARE A & B Discharge Planning Comments: CM met with patient to complete initial dc planning assessment. CM educated patient on the CM role and verbal consent given by patient to complete assessment. Patient lives at home with her where she is independent with her care. At discharge patient plans to return home and feels this is a safe discharge. CM discussed availability of home health, rehab services, and medical equipment. Her will drive her home upon discharge. Patient has HD MWF @ 0600 in [place]. Patient denied known discharge needs at this time. CM will continue to follow and will assist as needed with dc plans/needs. Community Education Specialist: Nisreen Johnson DCPIA - Discharge Planning Initial Assessment Updated by [email or web address]: Nisreen Johnson on 05/08/19 3:59 pm * Is the patient Alert and Oriented? Yes * How many steps to enter\exit or inside your home? * PCP Khloe * Pharmacy [facility] - [place] * Preadmission Environment Home with Family * ADLs Independent * Equipment None * List name and contact numbers for known caregivers / representatives who currently or will assist patient after discharge: CHUY Walden - spouse - [phone] * Verbal permission to speak to the caregivers and representatives has been obtained from the patient. Yes * Community resources currently utilized None * Please name any agencies selected above. [facility] - [place] * Additional services required to return to the preadmission environment? No * Can the patient safely return to the preadmission environment? Yes * Has this patient been hospitalized within the prior 30 days at any hospital? No Last DP export: 05/08/19 2:59 pm Patient Name: BLADIMIR WALDEN Page [id number] at 1608 All edits/amendments must be made on the electronic document DICTATION DATE: 05/08/191606 BUSINESS CONSULTANT: BETTY 05/08/191606 RPT#: [id number] DC DATE: STATUS: ADM IN [facility] [address] [place] [address] END OF REPORT
--- NOTE | 2019-05-08 23:50 | NUR ---
PATIENT VOMITING BILE COLORED EMESIS. ZOFRAN GIVEN
[2019-05-09] VITALS (11 sets, daily range): BP systolic 116–174; BP diastolic 52–85
[2019-05-09 04:21] LABS: BASOPHILS 0.3 % (0-2); HEMATOCRIT 30.6 % (36.0-48.0); HEMOGLOBIN 10.7 g/dL (12-16); LYMPHOCYTES 12.5 % (15-50); MCH 29.7 pg (26.0-34.0); MEAN PLATELET VOLUME 9.3 fL (7.4-10.4); MONOCYTES 7.4 % (2-11); NEUTROPHILS 71.8 % (40-80); PLATELET COUNT 134 10x3/uL (130-400); RDW 13.1 % (11.5-14.5); WBC 3.1 10x3/uL (4.8-10.8)
[2019-05-09 04:44] LABS: ANION GAP 17.8 mmol/L (8-16); CARBON DIOXIDE 26.7 mmol/L (21.0-32.0); CREATININE - SERUM 6.1 mg/dL (0.6-1.3); PHOSPHOROUS 5.9 mg/dL (2.5-4.9); POTASSIUM - SERUM 3.5 mmol/L (3.5-5.1)
--- NOTE | 2019-05-09 07:29 | NUR ---
REPORT CALLED TO [facility] ON [facility] 2
--- NOTE | 2019-05-09 09:40 | NUR ---
RECEIVED PT FROM ICU. PT IS AAO AND UP AD ARNAUD. FAMILY AT BEDSIDE. PT CURRENTLY LYING SEMI FOWLERS. CALL LIGHT W/I REACH. RR EVEN AND UNLABORED ON RA. PIV'S ARE SALINE LOCKED. PT C/O NAUSEA AND VOMITING. WILL ADMINISTER ORDERED DOSE OF ZOFRAN. WILL CTM. QUICKSTART COMPLETE.
--- NOTE | 2019-05-09 10:32 | NUR ---
PT HAS PERSISTENT VOMITING. SPOKE WITH LANDON LOPEZ WHO ORDERED 25MG PHENERGAN Q6HP. PLACED ORDER AND ADMINISTERED MEDICATION. REMOVED RIGHT WRIST PIV R/T INFILTRATED. PIV REMOVED WITH CATHETER TIP FULLY INTACT. PLACED NEW DRESSING TO R.AC PIV. FLUSHES AND PULLS. PT DENIES ANY FURTHER NEEDS. WILL CTM.
--- NOTE | 2019-05-09 19:10 | NUR ---
ALERT AND OX4 SKIN WARM AND DRY AND LCTA PT CO OF LEW AT THIS TIME BED IS LOW AND LOCKED CALL LIGHT IS IN REACH
[2019-05-09 21:06] LABS: ACID FAST SMEAR Negative (()); AFB SPECIMEN PROCESSING Concentration (())
[2019-05-10] VITALS: BP 139/64
--- NOTE | 2019-05-10 03:07 | NUR ---
PT CONTINUES TO REFUSE INSULINE GLUCOSE 244
[2019-05-10 04:30] VITALS: BP 140/74
[2019-05-10 05:07] LABS: BASOPHILS 0.6 % (0-2); HEMATOCRIT 33.2 % (36.0-48.0); HEMOGLOBIN 11.3 g/dL (12-16); IMMATURE GRANULOCYTES 0.3 % (0-5); LYMPHOCYTES 18.2 % (15-50); MCH 30.1 pg (26.0-34.0); MEAN PLATELET VOLUME 9.2 fL (7.4-10.4); MONOCYTES 8.8 % (2-11); NEUTROPHILS 61.1 % (40-80); PLATELET COUNT 136 10x3/uL (130-400); RBC 3.76 10x6/uL (4.00-5.40); RDW 13.7 % (11.5-14.5); WBC 3.2 10x3/uL (4.8-10.8)
[2019-05-10 05:15] LABS: MCV 88.3 fL (80.0-100.0)
[2019-05-10 05:36] LABS: ANION GAP 24.9 mmol/L (8-16); CALCIUM 9.2 mg/dL (8.5-10.1); CARBON DIOXIDE 20.8 mmol/L (21.0-32.0); POTASSIUM - SERUM 3.7 mmol/L (3.5-5.1)
[2019-05-10 05:49] LABS: CREATININE - SERUM 8.1 mg/dL (0.6-1.3); PHOSPHOROUS 9.6 mg/dL (2.5-4.9)
--- NOTE | 2019-05-10 07:10 | NUR ---
REPORT RECEIVED FROM PUBLIC TRANSPORTATION INSPECTOR AND PATIENT CARE ASSUMED. PATIENT LAYING IN BED AWAKE, ALERT AND ORIENTED X 4. PATIENT IS STABLE AND VSS. PATIENT DENIES ANY NEEDS OR PAIN. WILL CONTINUE WITH PLAN OF CARE. SR UP X 2 BED IN LOW POSTION.
[2019-05-10 07:14] LABS: HEPATITIS C ANTIBODY <0.1 S/CO RAT (0.0-0.9)
--- NOTE | 2019-05-10 07:46 | MORECARE ---
CASE MANAGEMENT DISCHARGE SUMMARY PATIENT: BLADIMIR WALDEN UNIT: [id number] ADM DATE: 05/05/19 AGE: 39 : 78 SEX: F ROOM/BED: D.9940 AUTHOR: SYLVIE AYALA PHYSICIAN: REFERRING PHYSICIAN: JONAH RAMÍREZ MD DATE OF SERVICE: 05/10/19 Discharge Plan Patient Name: BLADIMIR WALDEN Facility: [facility]:[place] : 1980 Planned Disposition: Home or Self Care Anticipated Discharge Date: Discharge Date: Expected LOS: Initial Reviewer: [email or web address] Initial Review Date: 05/08/2019 Generated: 05/10/19 8:45 am DCP- Discharge Planning Updated by [email or web address]: Nisreen Johnson on 05/08/19 3:[address] Patient Name: BLADIMIR WALDEN Admission Status: ER Accout number: [id number] Admission Date: 05-05-2019 : 1980 Admission Diagnosis:RESPIRATORY FAILURE, UNSP, UNSP W HYPOXIA OR HYPERCAPNI Attending: Jonah Ramírez Current LOS: 3 Anticipated DC Date: Planned Disposition: Home or Self Care Primary Insurance: MEDICARE A & B Discharge Planning Comments: CM met with patient to complete initial dc planning assessment. CM educated patient on the CM role and verbal consent given by patient to complete assessment. Patient lives at home with her where she is independent with her care. At discharge patient plans to return home and feels this is a safe discharge. CM discussed availability of home health, rehab services, and medical equipment. Her will drive her home upon discharge. Patient has HD MWF @ 0600 in [place]. Patient denied known discharge needs at this time. CM will continue to follow and will assist as needed with dc plans/needs. Boiler Tenders Supervisor: Nisreen Johnson DCPIA - Discharge Planning Initial Assessment Updated by [email or web address]: Nisreen Johnson on 05/08/19 3:59 pm * Is the patient Alert and Oriented? Yes * How many steps to enter\exit or inside your home? * PCP Khloe * Pharmacy [facility] - [place] * Preadmission Environment Home with Family * ADLs Independent * Equipment None * List name and contact numbers for known caregivers / representatives who currently or will assist patient after discharge: CHUY Walden - spouse - [phone] * Verbal permission to speak to the caregivers and representatives has been obtained from the patient. Yes * Community resources currently utilized None * Please name any agencies selected above. [facility] [place] * Additional services required to return to the preadmission environment? No * Can the patient safely return to the preadmission environment? Yes * Has this patient been hospitalized within the prior 30 days at any hospital? No Last DP export: 05/08/19 3:08 pm Patient Name: BLADIMIR WALDEN Page [id number] at 0746 All edits/amendments must be made on the electronic document DICTATION DATE: 05/10/19744 AGENCY RECRUITER: BETTY 05/10/19744 RPT#: [id number] DC DATE: STATUS: ADM IN [facility] [address] [place] [address] END OF REPORT
[2019-05-10 09:59] VITALS: BP 116/38
--- NOTE | 2019-05-10 10:45 | NUR ---
PATIENT IN WC FOR TRANPORT TO DIALYSIS. IV TO RT FOREARM INFILLTRATED. IV DCD . WILL RESIGHT BRYN PATIENT RETURNS FROM DIALYSIS.
[2019-05-10 13:10] LABS: FUNGUS STAIN Final report (())
--- NOTE | 2019-05-10 13:49 | NUR ---
Nutrition Follow-up: Pt unavailable for interview on multiple attempts. Chart reviewed. Noted vomiting yesterday but no further N/V this AM per MD. ST signed off. Diet: Renal ADA Soft PO intake: 0-25% Wt: 165# (rec reweigh; 187# on 05/08) Last BM: 05/09 Labs noted: K+ 3.7, PO4 9.6, Glu 264 Meds noted: Nephrovite, Renvela powder, Humulin Continue current diet as tolerated. Offer Nepro. [place] food preferences within diet restrictions. Encourage PO intake. RD following.
--- NOTE | 2019-05-10 14:32 | EC ---
PATIENT:BLADIMIR SMITH DATE OF SERVICE: 05/05/19 SEX: F MEDICAL RECORD: [id number] DATE OF : [birth year] LOCATION:D.M2 D.213 AGE OF PATIENT: 39 ADMISSION DATE: 05/05/19 REFERRING PHYSICIAN: INTERPRETING PHYSICIAN: ELENITA ZUNIGA MD ECHOCARDIOGRAM REPORT ECHO CHARGES 4 ECHO COMPLETE Date: 05/06/19 CLINICAL DIAGNOSIS: HYPERTENSION ECHOCARDIOGRAPHIC MEASUREMENTS (adult normal given) AC root (d.<3.7cm) 2.8 cm LV Septum d (<1.2 cm> 1.3 cm Valve Excursion 1.6 cm LV Septum (systole) 1.5 cm Left Atria (s.<4.0cm> 4.2 cm LVPW d(<1.2cm) 1.2 cm RV (d.<2.3cm) 2.7 cm LVPW (sytole) 1.7 cm LV diastole(<5.6CM) 5.0 cm MV E-F(>70mm/sec) cm LV systole 3.2 cm LVOT Diameter 2.0 cm MV exc.(>10mm) cm Est.ejection fraction (50-75%) % DOPPLER: LVIT cm/sec A 83 cm/sec E 67 cm/sec LA cm/sec RVSP 16.4 mmHg LVOT 96 cm/sec AOP1/2T m/s Asc. Ao 159 cm/sec RVOT 92 cm/sec RA cm/sec PA 100 cm/sec AV Gradient Peak 10.2 mmHg AV Mean 6.0 mmHg AV Area 1.8 cm MV Gradient Peak 4.2 mmHg MV Mean 2.3 mmHg MV Area cm COMMENTS: Control System Manager: Catarina JORGE Color Worker: 1 Dr. Zuniga TAPE# PACS Pericardial Effusion Y DATE OF SERVICE: 05/06/2019 PROCEDURE: Echocardiogram. FINDINGS: 1. Left ventricular chamber size is within normal limits. Left ventricular systolic function is normal at 55%. 2. The left atrium is mildly dilated at 4.2 cm. Right atrium and right ventricular chamber sizes are within normal limits. 3. Valvular structures have normal structure and motion. ECHOCARDIOGRAM REPORT [id number] BLADIMIR SMITH 4. Doppler interrogation reveals no significant valvular insufficiency or stenosis. 5. No evidence of pericardial effusion or left ventricular thrombus. TRANSINT:[id number] Voice Confirmation ID: [id number] DOCUMENT ID: [id number] ELENITA ZUNIGA MD at 1432 CC: [id number] DICTATION DATE: 05/07/19 1150 BEAUTY CULTURIST APPRENTICE: 05/07/19 1344 ADM IN [place] [address] [place] [id number]
[2019-05-10 17:31] VITALS: BP 151/84
--- NOTE | 2019-05-10 17:51 | NUR ---
ATTEMPTED TO RESTART PIV PATIENT REFUSED . PATIENT STATED TAHT SHE HOPES TO GO HOME TOMORROW AND THAT SHE DOES NOT WANT TO BE STUCK. PATIENT IS RECIEVING NO IV MEDS PER MAR. PATIENT SITTING UP EATING SUPPER AND AT BS. PATIENT DENIES ANY NEEDS OR PAIN. WILL CONTINUE TO MONITOR. SR UP X 2 BED IN LOW POSITION AND CALL LIGHT IN REACH.
--- NOTE | 2019-05-10 19:24 | NUR ---
DIALYSIS COORDINATOR: [facility] M[facility] @ 6:00AM. RECORDS TO HOME UNIT. MET WITH PATIENT BEDSIDE IN ROOM. PT TO RETURN TO HOME UNIT AT DISCHARGE. [place].
[2019-05-10 20:00] VITALS: BP 202/101
--- NOTE | 2019-05-10 20:00 | NUR ---
PATIENT LAYING IN BED. PATIENT HAS NO COMPLAINTS AT THIS TIME. NO DISTRESS NOTED.
--- NOTE | 2019-05-10 20:34 | NUR ---
PATIENT'S FINGER STICK BLOOD SUGAR 570. BLOOD PRESSURE 202/101. HYPERION DEVELOPER PHYSICIAN FOR DR. UMER REED. PATIENT HAS ORDER FOR 10MG OF HYDRALAZINE IV. PATIENT DOES NOT HAVE IV ACCESS AND REFUSES IV.
--- NOTE | 2019-05-10 21:50 | NUR ---
PATIENT AGREED TO HAVE IV ACCESS. NEW IV TO RIGHT FOREARM 22G X1 ATTEMPT.
[2019-05-11] VITALS: BP 130/77
[2019-05-11 05:43] VITALS: BP 144/72
[2019-05-11 06:20] LABS: BASOPHILS 0.5 % (0-2); EOSINOPHILS 11.9 % (0-7); HEMATOCRIT 32.8 % (36.0-48.0); HEMOGLOBIN 11.5 g/dL (12-16); LYMPHOCYTES 25.3 % (15-50); MCH 29.9 pg (26.0-34.0); MCHC 35.1 g/dL (31.0-37.0); MEAN PLATELET VOLUME 9.2 fL (7.4-10.4); MONOCYTES 11.1 % (2-11); NEUTROPHILS 51.2 % (40-80); PLATELET COUNT 139 10x3/uL (130-400); RBC 3.85 10x6/uL (4.00-5.40); RDW 13.1 % (11.5-14.5); WBC 3.9 10x3/uL (4.8-10.8)
[2019-05-11 06:42] LABS: ANION GAP 12.4 mmol/L (8-16); CALCIUM 9.4 mg/dL (8.5-10.1); POTASSIUM - SERUM 3.6 mmol/L (3.5-5.1)
[2019-05-11 06:45] LABS: MCV 85.2 fL (80.0-100.0)
[2019-05-11 06:50] LABS: CARBON DIOXIDE 31.2 mmol/L (21.0-32.0); CREATININE - SERUM 5.4 mg/dL (0.6-1.3); PHOSPHOROUS 5.8 mg/dL (2.5-4.9)
--- NOTE | 2019-05-11 07:38 | NUR ---
REPORT RECEIVED. WILL CONTINUE WITH POC. PT CURRENTLY LYING SEMI FOWLERS. CALL LIGHT W/I REACH. PT IS AAO AND UP AD ARNAUD. RR EVEN AND UNLABORED ON RA. R.FOR PIV IS SALINE LOCKED. PT DENIES ANY NEEDS. NO S/S OF DISTRESS NOTED. WILL CTM.
--- NOTE | 2019-05-11 08:57 | MORECARE ---
CASE MANAGEMENT DISCHARGE SUMMARY PATIENT: BLADIMIR WALDEN UNIT: [id number] ADM DATE: 05/05/19 AGE: 39 : [birth year] SEX: F ROOM/BED: D.0058 AUTHOR: SYLVIE AYALA PHYSICIAN: REFERRING PHYSICIAN: JONAH RAMÍREZ MD DATE OF SERVICE: 05/11/19 Discharge Plan Patient Name: BLADIMIR WALDEN Facility: [facility]:[place] : 1980 Planned Disposition: Home or Self Care Anticipated Discharge Date: 05/11/19 Discharge Date: Expected LOS: 6 Initial Reviewer: [email or web address] Initial Review Date: 05/08/2019 Generated: 05/11/19 9:56 am Comments DCP- Discharge Planning Updated by [email or web address]: Chan Pruitt on 05/11/19 7:[address] Patient Name: BLADIMIR WALDEN Encounter No: [id number] : 1980 Primary Insurance: MEDICARE A & B Anticipated DC Date: 05-11-2019 Planned Disposition: Home or Self Care DCP follow-up note: CM MET WITH PT IN ROOM TO DISCUSS DISCHARGE NEEDS AND PLANNING. CM DISCUSSED AVAILABILITY OF HOME HEALTH, REHAB SERVICES AND MEDICAL EQUIPMENT. PT DENIES DISCHARGE NEEDS. SPOUSE TO TRANSPORT HOME AT DISCHARGE. IMPORTANT MESSAGE FROM MEDICARE PROVIDED AND EXPLAINED. BEE [place] DCP- Discharge Planning Updated by [id number]: Nisreen Johnson on 05/08/19 3:[address] Patient Name: BLADIMIR WALDEN Admission Status: ER Accout number: [id number] Admission Date: 05-05-2019 : 1980 Admission Diagnosis:RESPIRATORY FAILURE, UNSP, UNSP W HYPOXIA OR HYPERCAPNI Attending: Jonah Ramírez Current LOS: 3 Anticipated DC Date: Planned Disposition: Home or Self Care Primary Insurance: MEDICARE A & B Discharge Planning Comments: CM met with patient to complete initial dc planning assessment. CM educated patient on the CM role and verbal consent given by patient to complete assessment. Patient lives at home with her where she is independent with her care. At discharge patient plans to return home and feels this is a safe discharge. CM discussed availability of home health, rehab services, and medical equipment. Her will drive her home upon discharge. Patient has HD MWF @ 0600 in [place]. Patient denied known discharge needs at this time. CM will continue to follow and will assist as needed with dc plans/needs. Criminal Lawyer: Nisreendorcas Goetzr DCPIA - Discharge Planning Initial Assessment Updated by [email or web address]: Nisreen Johnson on 05/08/19 3:59 pm * Is the patient Alert and Oriented? Yes * How many steps to enter\exit or inside your home? * PCP Khloe * Pharmacy [facility] [place] * Preadmission Environment Home with Family * ADLs Independent * Equipment None * List name and contact numbers for known caregivers / representatives who currently or will assist patient after discharge: CHUY Walden - spouse - [phone] * Verbal permission to speak to the caregivers and representatives has been obtained from the patient. Yes * Community resources currently utilized None * Please name any agencies selected above. [facility] - [place] * Additional services required to return to the preadmission environment? No * Can the patient safely return to the preadmission environment? Yes * Has this patient been hospitalized within the prior 30 days at any hospital? No Coverage Notice Reviewer: [email or web address] - Chan Pruitt Notice Issued Date-Time: 05/11/2019 8:30 Notice Type: IM Discharge Notice Notice Delivered To: Patient Relationship to Patient: Steamfitter Supervisor Name: Delivery Method: HAND - Hand Delivered Jocelyn Days: Prior Verbal Notification: Recipient Understood Notice: Yes Recipient Signature: Yes Med Rec Note Co-signed by Attending: Coverage Notice Comment: Last DP export: 05/10/19 6:46 a Patient Name: BLADIMIR WALDEN Page [id number] at 0857 All edits/amendments must be made on the electronic document DICTATION DATE: 05/11/19855 FROG FARMER: BETTY 05/11/19855 RPT#: [id number] DC DATE: STATUS: ADM IN [facility] [address] [place] [address] END OF REPORT
[2019-05-11 09:16] VITALS: BP 135/66
--- NOTE | 2019-05-11 09:41 | NUR ---
AM MEDICATIONS ADMINISTERED. PT DENIES ANY NEEDS AND IS CURRENTLY AWAITING DISCHARGE. WILL CTM.
--- NOTE | 2019-05-11 10:40 | NUR ---
PT DISCHARGED HOME VIA WHEELCHAIR WITH FAMILY. PIV REMOVED WITH CATHETER TIP FULLY INTACT. PT SIGNED PROPER DISCHARGE PAPERWORK AND REMOVED ALL VALUABLES FROM THE ROOM.
[2019-05-15 12:09] LABS: FUNGUS MYCOLOGY CULTURE Preliminary report (())
== END 2019-05-11 10:41 | disposition home or self-care (01) | DRG 208 ==
LOC: D.ER 14:36 → D.ICU 20:24 → D.M2 05-09 09:14
PROVIDERS: Family Medicine; Internal Medicine Nephrology; ADMIT Internal Medicine Nephrology; ATTEND Internal Medicine Nephrology
PROC: 5A1945Z Respiratory Ventilation, 24-96 Consecutive Hours (ICD-10-PCS; 2019-05-05)
PROC: 0B9B8ZZ Drainage of Left Lower Lobe Bronchus, Via Natural or Artificial Opening Endoscopic (ICD-10-PCS; principal; 2019-05-06)
DX: J96.00 Acute respiratory failure, unspecified whether with hypoxia or hypercapnia (principal); R40.2114 Coma scale, eyes open, never, 24 hours or more after hospital admission; R40.2214 Coma scale, best verbal response, none, 24 hours or more after hospital admission; N18.6 End stage renal disease; I12.0 Hypertensive chronic kidney disease with stage 5 chronic kidney disease or end stage renal disease; J98.11 Atelectasis; D61.818 Other pancytopenia; R40.2354 Coma scale, best motor response, localizes pain, 24 hours or more after hospital admission; E10.22 Type 1 diabetes mellitus with diabetic chronic kidney disease; Z99.2 Dependence on renal dialysis; D63.1 Anemia in chronic kidney disease; G47.33 Obstructive sleep apnea (adult) (pediatric); F41.9 Anxiety disorder, unspecified

== ENCOUNTER 2019-06-08 10:15 | Day surgery (SDC) | payer MEDICARE ==
[~2019-06-08] VITALS: Ht 167.6 cm; Wt 74.8 kg
[~2019-06-08 10:15] MED LIST changes: +BENADRYL25 MG PO
[2019-06-08 11:07] LABS: BASOPHILS 0.4 % (0-2); HEMATOCRIT 34.9 % (36.0-48.0); HEMOGLOBIN 11.8 g/dL (12-16); IMMATURE GRANULOCYTES 0.2 % (0-5); LYMPHOCYTES 16.3 % (15-50); MCH 30.2 pg (26.0-34.0); MCHC 33.8 g/dL (31.0-37.0); MCV 89.3 fL (80.0-100.0); MEAN PLATELET VOLUME 9.4 fL (7.4-10.4); MONOCYTES 5.6 % (2-11); NEUTROPHILS 67.5 % (40-80); PLATELET COUNT 127 10x3/uL (130-400); RBC 3.91 10x6/uL (4.00-5.40); RDW 13.5 % (11.5-14.5); WBC 4.5 10x3/uL (4.8-10.8)
[2019-06-08 11:15] LABS: INR 0.95 (0.85-1.17); PROTIME 12.2 SECONDS (11.6-15.0)
[2019-06-08 11:26] LABS: ANION GAP 18.1 mmol/L (8-16); CALCIUM 8.9 mg/dL (8.5-10.1); CARBON DIOXIDE 24.1 mmol/L (21.0-32.0); CREATININE - SERUM 5.5 mg/dL (0.6-1.3); POTASSIUM - SERUM 4.2 mmol/L (3.5-5.1)
[2019-06-08 12:24] VITALS: Ht 167.6 cm; Wt 74.8 kg
--- NOTE | 2019-06-08 16:46 | NUR ---
1629-REC'D FROM RR. AWAKE AND ALERT. DRESSING TO LEFT ARM CDI. ABLE TO FEEL BRUIT. DENIES PAIN.VSS. CL IN EASY REACH. AT BEDSIDE.
--- NOTE | 2019-06-08 17:25 | NUR ---
1725-STRONG BRUIT PALPATED TO LEFT ARM. DENIES PAIN. VSS. TOLERATED FULL LIQUID. IV REMOVED FROM RIGHT ARM WITH CATH INTACT,DISPOSED INTO SHARPS, COVERED SITE WITH BANDAID.
--- NOTE | 2019-06-08 17:41 | NUR ---
0-DISCHARGE CRITERIA MET.REVIEWED POST OPERATIVE INSTRUCTIONS.VERBALIZED UNDERSTANDING WITHOUT FURTHER QUESTIONS OR CONCERNS. ESCORTED OUT VIA W/C WITH SPOUSE AWAITING TO DRIVE HOME
--- NOTE | 2019-06-10 14:59 | OP ---
PATIENT NAME: BLADIMIR WALDEN MEDICAL RECORD: [id number] :[birth year] LOCATION:[facility] ADMISSION DATE: SURGEON: NENA BEEBE MD DATE OF OPERATION: 06/08/2019 REFERRED BY: Dr. 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 OPERATIONS PERFORMED: Fistulogram and balloon angioplasty of stenosis at the site of recent standard open Kumar banding procedure over a 4-mm diameter angioplasty balloon. SURGEON: Nena Beebe MD ANESTHESIA: General LMA per SERVICENOW ADMINISTRATOR. PREOPERATIVE NOTE: Ms. Walden is a 39-year-old white female patient on chronic hemodialysis in [place] with a left brachial to translocated basilic vein AV fistula. 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 About 6 weeks ago, she had surgery, at which time I did a Kumar banding of the fistula with the intent of reducing flow and reducing shear stress and reducing frequency of recurrent proximal stenosis. The banding was done over a standard 4 mm diameter balloon. The patient's fistula flow though has been excessively reduced. Last week, Dr. Elise performed a fistulogram and found a very tight stenosis at that site of banding and was actually unable to pass an 0.035 wire across it. She was referred back to me and I am bringing her back to the hospital today with plans to perform another angiogram and if possible percutaneous balloon angioplasty of the stenosis and if that is not successful, then an open revision, the banding was done with a single 2-0 Prolene ligature and it is usually possible to dilate that iatrogenic stenosis to 5 mm due to inherent stretching capacity of the Prolene material. DESCRIPTION OF THE PROCEDURE: Under anesthesia in supine position, the patient was prepped and draped in a sterile manner. I accessed her fistula directly with micropuncture technique in a retrograde manner with a micropuncture sheath directed distally. I then attempted to pass a 0.018 [place] wire and was unable to successfully pass the wire across the area of stenosis. I did do a fistulogram with proximal occlusion and demonstrated a very tight stenosis about an inch above the arterial anastomosis corresponding to be Kumar banding site. I exchanged for a 6 mm introducer sheath and then again used the same wire via a 4-[place]orese diagnostic catheter but again was unable to pass the wire across the stenosis. I then accessed the fistula from the distal portion in the antecubital space and was able with the micropuncture wire and sheath to cross the area of stenosis and then used a 0.035 guidewire and placed a 6 mm introducer and then dilated the area of stenosis with a 5 mm diameter balloon. Contrast injections revealed a significant increase in flow and diameter at that site. There was still a significant stenosis which is flow reducing and hopefully will provide the adequate amount of sheer stress reduction. There was an area of relative stenosis just proximal to that and that was dilated with an OPERATIVE REPORT [id number] BLADIMIR WALDEN 8 mm diameter balloon. Repeated contrast injections revealed excellent flow and no complications. The 2 introducer sheaths were removed and hemostasis obtained at those entry sites with [id number] 4-0 Prolene sutures and direct pressure. I had given the patient 3000 units of heparin during the procedure and this was partially reversed with 10 mg of protamine. The sites were dressed with Ultrafoam, Tegaderm, and Cavilon skin prep. The site of the patient's recent fistulogram puncture from last week was read and I examined it to see if there was any retained suture material and did not find any. That site was then dressed with Bactroban ointment, Ultrafoam and Tegaderm. The patient was awakened and with satisfactory flow in the fistula and satisfactory flow in the forearm and hand, taken to the recovery room. Blood loss during the procedure estimated at 10 cc, was unreplaced. Sponges, instruments, and needles were accounted for. No drain was used and no surgical specimen submitted for histopathology. Radiologic images from the procedure are recorded in the PACS. PLAN: The patient will be discharged today and will return for her usual dialysis session in [place] tomorrow. I am faxing a copy of this operative dictation to the [place] [facility] as well as to [facility], Dr. Elise and Dr. Ledbetter. I would like her to have a repeat or followup angiogram in about 3 months at [facility]. I would like to have some followup from the [place] [facility] as to how the fistula functions tomorrow and then I would like to know her fistula flow when it is next measured. Also, the previous puncture site, which was red and mildly infected appearing is to be dressed with Bactroban ointment, partial tube of which I am giving to the patient to take home with her today. TRANSINT:[id number] Voice Confirmation ID: [id number] DOCUMENT ID: [id number] CC: [facility] NENA BEEBE MD at 1459 CC: CASSANDRA LEDBETTER MD and CORY ELISE MD [id number] DICTATION DATE: 06/08/19 1618 CREDENTIALING SPECIALIST: 06/09/19 0006 [facility] [place] 06/08/19 [facility] [address] [place] [address]
== END 2019-06-08 17:30 | disposition home or self-care (01) ==
LOC: D.OPS 10:15
PROVIDERS: Surgery; ATTEND Internal Medicine
DX: T82.858A Stenosis of other vascular prosthetic devices, implants and grafts, initial encounter (principal); Y83.9 Surgical procedure, unspecified as the cause of abnormal reaction of the patient, or of later complication, without mention of misadventure at the time of the procedure

== ENCOUNTER 2020-03-27 06:06 | Day surgery (SDC) | payer MEDICARE ==
[~2020-03-27] VITALS: Ht 167.6 cm; Wt 75.0 kg
[2020-03-27] MEDS ORDERED: TRAZODONE HCL150 MG PO (06:47)
[2020-03-27] MEDS ORDERED: PROTONIX40 MG PO (06:48)
[2020-03-27 06:54] LABS: ANION GAP 16.3 mmol/L (8-16); CARBON DIOXIDE 26.7 mmol/L (21.0-32.0); CREATININE - SERUM 6.5 mg/dL (0.6-1.3)
[2020-03-27] MEDS ORDERED: OMEPRAZOLE20 M1 PO (07:03)
[2020-03-27] MEDS ORDERED: FLAGYL250 MG PO (07:04)
[2020-03-27 07:23] VITALS: Ht 167.6 cm; Wt 75.0 kg
[2020-03-27 07:35] LABS: BASOPHILS 0.6 % (0-2); HEMATOCRIT 30.8 % (36.0-48.0); IMMATURE GRANULOCYTES 0.3 % (0-5); LYMPHOCYTES 18.3 % (15-50); MCH 28.7 pg (26.0-34.0); MCHC 32.5 g/dL (31.0-37.0); MCV 88.5 fL (80.0-100.0); MEAN PLATELET VOLUME 9.4 fL (7.4-10.4); NEUTROPHILS 65.8 % (40-80); PLATELET COUNT 114 10x3/uL (130-400); RBC 3.48 10x6/uL (4.00-5.40); WBC 3.3 10x3/uL (4.8-10.8)
--- NOTE | 2020-03-27 08:08 | NUR ---
BALLOON DIL 28, 19 20
--- NOTE | 2020-03-29 15:58 | OP ---
PATIENT NAME: BLADIMIR SMITH MEDICAL RECORD: [id number] :78 LOCATION:[facility] ADMISSION DATE: SURGEON: ROBERTO AKERS DO DATE OF OPERATION: 03/27/2020 PROCEDURE: EGD with biopsies and balloon dilation. INDICATIONS FOR PROCEDURE: Epigastric pain, dysphagia, nausea, gastroparesis. SCOPE: Olympus video gastroscope. MEDICATIONS: Propofol 230 mg IV per anesthesia. ESTIMATED BLOOD LOSS: Minimal. COMPLICATIONS: None. FINDINGS: Informed consent was given. The patient was made comfortable with the above medication. After reaching an adequate level of sedation by slow IV push, the patient was placed on her left side. The endoscope was advanced under direct visualization through the mouth to the second portion of the duodenum with ease. The upper and middle esophagus appeared normal. Cold forceps biopsies were taken from the midesophagus to rule out the presence of eosinophils in light of her dysphagia. In the distal esophagus and down to the GE junction, there was evidence of LA class B reflux-induced esophagitis. There appeared to be a stricture located at the GE junction that measured approximately 12-13 mm in diameter. A CRE dilating balloon was used to dilate the stricture to 20 mm maximum diameter successfully. The endoscope was advanced beyond the GE junction in the stomach where a large amount of retained food was present. The patient does have a known history of gastroparesis documented by gastric emptying study Retroflexion was performed to view the cardia and fundus, which appeared normal. The endoscope was advanced beyond the body of the stomach down to the antrum and prepyloric region where there was some erythema and granularity consistent with mild chronic gastritis. Cold forceps biopsies were taken from the antrum and incisura to submit for histopathology and to rule out the presence of H. pylori. The endoscope was advanced beyond the pylorus into the duodenum, which appeared normal to the second portion. The endoscope was withdrawn from the patient. The patient tolerated the procedure well and there were no complications. IMPRESSION: 1. LA class B reflux-induced esophagitis. 2. Esophageal stricture located at the GE junction, status post dilation to 20 mm. 3. Mild chronic gastritis changes in the antrum. 4. Retained food consistent with gastroparesis. PLAN AND RECOMMENDATIONS: 1. Discharge home when recovery parameters are met. 2. Follow up biopsy specimen results. 3. GERD diet and reflux precautions. 4. Continue current medications including pantoprazole 40 mg daily. 5. Follow up in GI clinic in 4-6 weeks. 6. Repeat EGD as needed for dysphagia. OPERATIVE REPORT [id number] BLADIMIR SMITH ROBEL TRANSINT:[id number] Voice Confirmation ID: [id number] DOCUMENT ID: [id number] ROBERTO AKERS DO at 1558 CC: [id number] DICTATION DATE: 03/27/20817 FOREIGN EXCHANGE STUDENT COORDINATOR: 03/27/20 1136 [facility] 03/27/20 [id number] [place] [address]
== END 2020-03-27 09:15 | disposition home or self-care (01) ==
LOC: D.OPS 06:06
PROVIDERS: ATTEND Internal Medicine Gastroenterology
DX: R10.13 Epigastric pain (principal); R13.10 Dysphagia, unspecified; R11.0 Nausea; K31.84 Gastroparesis